=== PATIENT | female | born 1980 | race Hispanic/Latino ===

== ENCOUNTER 2016-06-04 09:03 | Outpatient (RCR) | payer OTHER | END 2016-06-22 | disposition home or self-care (01) | LOC: ONC 09:03 | PROVIDERS: ATTEND Radiology Radiation Oncology | DX: E05.00 Thyrotoxicosis with diffuse goiter without thyrotoxic crisis or storm (principal) | CPT/HCPCS: 84703; 99214 ==

== ENCOUNTER → 2016-06-04 | Outpatient (CLI) | payer OTHER | LOC: CARD 09:36 | PROVIDERS: ATTEND Radiology Radiation Oncology | DX: E05.00 Thyrotoxicosis with diffuse goiter without thyrotoxic crisis or storm (principal) | CPT/HCPCS: 79005 ==

== ENCOUNTER 2016-11-30 09:47 | Outpatient (CLI) | payer OTHER ==
[~2016-11-30] VITALS: Ht 152.4 cm; Wt 83.9 kg
[2016-11-30 09:54] VITALS: BP 112/77
[2016-11-30 10:26] LABS: BASOPHILS % (AUTO) 1 % (0-10); EOSINOPHILS # (AUTO) 0.3 10^3/uL (0.0-0.3); EOSINOPHILS % (AUTO) 4 % (0-10); LYMPHOCYTES # (AUTO) 2.2 X 10^3 (1.0-4.0); LYMPHOCYTES % (AUTO) 30 % (12-44); MEAN CORPUSCULAR HEMOGLOBIN 32 PG (25-34); MEAN CORPUSCULAR HGB CONC 35 G/DL (32-36); MEAN CORPUSCULAR VOLUME 92 FL (80-99); MEAN PLATELET VOLUME 9.9 FL (7.4-10.4); MONOCYTES # (AUTO) 0.3 X 10^3 (0.0-1.0); MONOCYTES % (AUTO) 4 % (0-12); NEUTROPHILS # (AUTO) 4.5 X 10^3 (1.8-7.8); NEUTROPHILS % (AUTO) 61 % (42-75); PLATELET COUNT 341 10^3/uL (130-400); RED BLOOD COUNT 4.44 10^6/uL (4.35-5.85); RED CELL DISTRIBUTION WIDTH 12.3 % (10.0-14.5); WHITE BLOOD COUNT 7.3 10^3/uL (4.3-11.0)
[2016-11-30] MEDS ORDERED: LEVO100T7 PO (10:27)
[2016-11-30 10:43] LABS: ANION GAP 9 MMOL/L (5-14); BLOOD UREA NITROGEN 11 MG/DL (7-18); BUN/CREATININE RATIO 13; CALCIUM 8.8 MG/DL (8.5-10.1); CARBON DIOXIDE 23 MMOL/L (21-32); CHLORIDE 105 MMOL/L (98-107); CREATININE SERUM 0.85 MG/DL (0.60-1.30); GFR ESTIMATED > 60; GLUCOSE 123 MG/DL (70-105); POTASSIUM 3.7 MMOL/L (3.6-5.0); SODIUM 137 MMOL/L (135-145)
== END 2016-11-30 10:20 | disposition home or self-care (01) ==
LOC: PREOP 09:47
PROVIDERS: ATTEND Surgery
DX: Z01.812 Encounter for preprocedural laboratory examination (principal); Z11.2 Encounter for screening for other bacterial diseases; K80.20 Calculus of gallbladder without cholecystitis without obstruction
CPT/HCPCS: 36415; 80048; 84703; 85025; 87081

== ENCOUNTER → 2016-12-01 | Outpatient (CLI) | payer OTHER ==
[~2016-12-01] MED LIST: DOCU-143 PO; HYDR-3812 PO; LEVO100T7 PO
--- NOTE | 2016-12-01 10:29 | Diagnostic Imaging Report ---
PROCEDURE: US Gallbladder. TECHNIQUE: Multiple real-time grayscale images were obtained over the right upper quadrant in various projections. INDICATION: Abdominal pain. FINDINGS: The pancreas is largely obscured by bowel gas. The liver demonstrates homogeneous parenchyma with no focal lesion. Hepatopetal flow in the portal vein is seen. The CBD is 4 mm in caliber. The gallbladder demonstrates multiple stones without wall thickening or pericholecystic fluid. Sonographic Joseph sign reportedly negative. The right kidney is 10.6 cm in length with no hydronephrosis or focal lesion. There is no fluid collection in the upper right abdomen. IMPRESSION: Cholelithiasis. Dictated by: Dictated on workstation # [id number]
== END ==
LOC: RAD 07:25
PROVIDERS: ATTEND Surgery
DX: K80.20 Calculus of gallbladder without cholecystitis without obstruction (principal)
CPT/HCPCS: 76705

== ENCOUNTER 2016-12-02 09:30 | Day surgery (SDC) | payer OTHER ==
[~2016-12-02] VITALS: Ht 152.4 cm; Wt 83.9 kg
[~2016-12-02 09:30] MED LIST changes: -DOCU-143 PO; -HYDR-3812 PO
[2016-12-02] MEDS: LACTATED RINGERS 1,000 ML IV PRN ×2 (09:45→13:01)
--- OUTSIDE RECORDS SUMMARY | 2016-12-02 10:11 | XMS REPORT ---
Author Author RAJESH MARQUEZ Organization [facility] [place] Address [address] [place] [address] Care Team Providers Care Manager Business Management Name Role Phone RAJESH MARQUEZ Unavailable PROBLEMS Type Condition ICD9-CM Code RHV19-OA Code Onset Dates Condition Status SNOMED Code Problem Encounter to establish care Z76.89 Active 259363026 Problem Right upper quadrant pain R10.11 Active 222906272 Problem Hyperthyroidism E05.90 Active 08792248 Assessment Hyperthyroidism E05.90 Jan, Active 65376332 ALLERGIES No Known Allergies SOCIAL HISTORY No smoking Hx information available PLAN OF CARE VITAL SIGNS MEDICATIONS No Known Medications RESULTS Name Result Date Reference Range T4 FREE 2016-02-13 T4,Free(Direct) 1.96 0.82-1.77 T3 TOTAL 2016-02-13 Triiodothyronine (T3) 263 71-180 PROCEDURES Procedure Date Ordered Related Diagnosis Body Site ASSAY, TRIIODOTHYRONINE (T3) Feb 13, 2016 ASSAY OF FREE THYROXINE Feb 13, 2016 VENIPUNCT, ROUTINE* Feb 13, 2016 IMMUNIZATIONS No Known Immunizations
--- OUTSIDE RECORDS SUMMARY | 2016-12-02 10:11 | XMS REPORT | Continuity of Care Document ---
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 THYROTOXIC 11/04/2015 RAJESH MARQUEZP Ot K80.20 CALCULUS OF GALLBLADDER W/O CHOLECYSTITI 11/04/2015 RAJESH MARQUEZ DINING ROOM HELPER Ot E05.90 THYROTOXICOSIS, 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 THYROTOXIC 11/07/2015 DUKE MARX, SHYAM Shipman Ot 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 11/07/2015 DUKE MARX, SHYAM Shipman Ot 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 12/23/2015 RAJESH MARQUEZP Ot K80.20 CALCULUS OF GALLBLADDER W/O CHOLECYSTITI 12/23/2015 RAJESH MARQUEZP Ot E05.90 THYROTOXICOSIS, 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 THYROTOXIC 12/23/2015 DUKE MARX, SHYAM Shipman Ot 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 12/23/2015 RAJESH MARQUEZ DINING ROOM HELPER Ot K80.20 CALCULUS OF GALLBLADDER W/O CHOLECYSTITI 12/23/2015 RAJESH MARQUEZP Ot E05.90 THYROTOXICOSIS, 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 THYROTOXIC 12/23/2015 DUKE MARX, SHYAM Shipman Ot 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 12/23/2015 RAJESH MARQUEZ DINING ROOM HELPER Ot E05.90 THYROTOXICOSIS, 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 THYROTOXIC 12/23/2015 RAJESH MARQUEZ DINING ROOM HELPER Ot K80.20 CALCULUS OF GALLBLADDER W/O CHOLECYSTITI 12/24/2015 RAJESH MARQUEZ DINING ROOM HELPER Ot K80.20 CALCULUS OF GALLBLADDER W/O CHOLECYSTITI 12/24/2015 DUKE MARX, SHYAM Shipman Ot 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 01/28/2016 RAJESH MARQUEZ DINING ROOM HELPER Ot K80.20 CALCULUS OF GALLBLADDER W/O CHOLECYSTITI 01/28/2016 RAJESH MARQUEZ DINING ROOM HELPER Ot E05.90 THYROTOXICOSIS, 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 THYROTOXIC 01/28/2016 DUKE MARX, SHYAM Shipman Ot 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 01/28/2016 DUKE MARX, SHYAM Shipman Ot 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 01/28/2016 RAJESH MARQUEZ DINING ROOM HELPER Ot E05.90 THYROTOXICOSIS, 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 THYROTOXIC 01/28/2016 RAJESH MARQUEZ DINING ROOM HELPER Ot K80.20 CALCULUS OF GALLBLADDER W/O CHOLECYSTITI 03/10/2016 RAJESH MARQUEZ DINING ROOM HELPER Ot K80.20 CALCULUS OF GALLBLADDER W/O CHOLECYSTITI 03/10/2016 RAJESH MARQUEZ DINING ROOM HELPER Ot E05.90 THYROTOXICOSIS, 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 THYROTOXIC 03/10/2016 DUKE MARX, SHYAM Shipman Ot 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 03/24/2016 RAJESH MARQUEZ DINING ROOM HELPER Ot K80.20 CALCULUS OF GALLBLADDER W/O CHOLECYSTITI 03/24/2016 RAJESH MARQUEZ DINING ROOM HELPER Ot E05.90 THYROTOXICOSIS, 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 THYROTOXIC 03/24/2016 DUKE MARX, SHYAM Shipman Ot 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 06/04/2016 RAJESH MARQUEZ DINING ROOM HELPER Ot K80.20 CALCULUS OF GALLBLADDER W/O CHOLECYSTITI 06/04/2016 RAJESH MARQUEZ DINING ROOM HELPER Ot E05.90 THYROTOXICOSIS, 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 THYROTOXIC 06/04/2016 DUKE MARX, SHYAM Shipman Ot 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 06/04/2016 NORA YORK MD Ot 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 06/04/2016 NORA YORK MD E Ot 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 06/04/2016 NORA YORK MD Ot 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 06/07/2016 NORA YORK MD Ot 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 06/09/2016 NORA YORK MD Ot 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 06/22/2016 NORA YORK MD Ot 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 06/23/2016 NORA YORK MD Ot 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 06/24/2016 NORA YORK MD Ot 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 07/16/2016 NORA YORK MD Ot 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 Procedures Results Test Result Range Serum or plasma choriogonadotropin ( test) detection - 04/09/16 09:33 Serum or plasma choriogonadotropin ( test) detection NEGATIVE NEGATIVE Serum or plasma choriogonadotropin ( test) detection - 06/04/16 09:24 Serum or plasma choriogonadotropin ( test) detection NEGATIVE NEGATIVE Urine beta human chorionic gonadotropin (hCG) measurement - 11/30/16 10:10 Urine beta human chorionic gonadotropin (hCG) measurement NEGATIVE NEGATIVE Complete blood count (CBC) with automated white blood cell (WBC) differential - 11/30/16 10:10 Blood leukocytes automated count (number/volume) 7.3 10*3/ uL 4.3-11.0 Blood erythrocytes automated count (number/volume) 4.44 10*6 /uL 4.35-5.85 Venous blood hemoglobin measurement (mass/volume) 14.3 g/dL 11.5-16.0 Blood hematocrit (volume fraction) 41 % 35-52 Automated erythrocyte mean corpuscular volume 92 [foz_us] 80-99 Automated erythrocyte mean corpuscular hemoglobin (mass per erythrocyte) 32 pg 25-34 Automated erythrocyte mean corpuscular hemoglobin concentration measurement ( mass/volume) 35 g/dL 32-36 Automated erythrocyte distribution width ratio 12.3 % 10.0-14.5 Automated blood platelet count (count/volume) 341 10*3/uL 130-400 Automated blood platelet mean volume measurement 9.9 [foz_us ] 7.4-10.4 Automated blood neutrophils/100 leukocytes 61 % 42-75 Automated blood lymphocytes/100 leukocytes 30 % 12-44 Blood monocytes/100 leukocytes 4 % 0-12 Automated blood eosinophils/100 leukocytes 4 % 0-10 Automated blood basophils/100 leukocytes 1 % 0-10 Blood neutrophils automated count (number/volume) 4.5 10*3 1.8-7.8 Blood lymphocytes automated count (number/volume) 2.2 10*3 1.0-4.0 Blood monocytes automated count (number/volume) 0.3 10*3 0.0-1.0 Automated eosinophil count 0.3 10*3/uL 0.0-0.3 Automated blood basophil count (count/volume) 0.0 10*3/uL 0.0-0.1 Whole blood basic metabolic panel - 11/30/16 10:10 Serum or plasma sodium measurement (moles/volume) 137 mmol/ L 135-145 Serum or plasma potassium measurement (moles/volume) 3.7 mmol/L 3.6-5.0 Serum or plasma chloride measurement (moles/volume) 105 mmol /L 98-107 Carbon dioxide 23 mmol/L 21-32 Serum or plasma anion gap determination (moles/volume) 9 mmol/L 5-14 Serum or plasma urea nitrogen measurement (mass/volume) 11 mg/dL 7-18 Serum or plasma creatinine measurement (mass/volume) 0.85 mg /dL 0.60-1.30 Serum or plasma urea nitrogen/creatinine mass ratio 13 NRG Serum or plasma creatinine measurement with calculation of estimated glomerular filtration rate > NRG Serum or plasma glucose measurement (mass/volume) 123 mg/dL 70-105 Serum or plasma calcium measurement (mass/volume) 8.8 mg/dL 8.5-10.1 Methicillin resistant Staphylococcus aureus (MRSA) screening culture - 10:10 Methicillin resistant Staphylococcus aureus (MRSA) screening culture NEG NRG Encounters ACCT No. Visit Date/Time Discharge Status Pt. Type Provider Facility Loc./Unit Complaint [id number] 06/04/2016 09:03:00 2016 00:01:00 DIS Outpatient NORA YORK MD [facility] ONC [id number] 11/30/2016 10:27:00 Document Registration [id number] 06/23/2016 00:10:00 PEN Preadmit NORA YORK MD [facility] ONC [id number] 06/04/2016 09:36:00 ACT Outpatient NORA YORK MD [facility] CARD THYROID CA [id number] 11/04/2015 13:48:00 ACT Outpatient DUKE MARX, SHYAM Shipman [facility] RAD GRAVES DISEASE [id number] 10/21/2015 11:08:00 ACT Outpatient RAJESH MARQUEZP [facility] CARD HYPERTHYROIDISM [id number] 10/14/2015 10:00:00 ACT Outpatient RAJESH MARQUEZ DINING ROOM HELPER [facility] RAD RUQ PAIN
--- OUTSIDE RECORDS SUMMARY | 2016-12-02 10:11 | XMS REPORT ---
Author RAJESH Schroeder [facility] e[employer] Address Unknown Phone Unavailable Care Team Providers Care Application Specialist Name Role Phone RAJESH MARQUEZ CP Unavailable Allergies, Adverse Reactions, Alerts Substance Reaction Event Type N.K.D.A. Info Not Available Non Drug Allergy Problems Problem Type Condition Code Onset Dates Condition Status Problem Gall stones K80.20 Active Problem Encounter to establish care Z76.89 Active Problem Graves disease E05.00 Active Assessment Graves disease E05.00 Active Assessment Gall stones K80.20 Active Problem Right upper quadrant pain R10.11 Active Problem Hyperthyroidism E05.90 Active Medications Medication Code System Code Instructions Start Date End Date Status Dosage Propranolol HCl [facility] [address]-84 10 MG Orally Three times a day 1 tablet Methimazole [facility] [address]-66 10 MG Orally Three times a day 1 tablet with food Procedures Procedure Coding System Code Date Office Visit, Est Pt., Level 4 CPT-4 98170 Mar 10, 2016 Vital Signs Date/Time: Mar 10, 2016 Cardiac Monitoring Heart Rate 76 bpm Weight 171.5 lbs Height 63 in BMI 30.38 Index Blood Pressure Diastolic 76 mmHg Blood Pressure Systolic 120 mmHg Results No Known Results Summary Purpose eClinicalWorks Submission
--- OUTSIDE RECORDS SUMMARY | 2016-12-02 10:11 | XMS REPORT ---
Author Author RAJESH MARQUEZ Organization [facility] Address [address] [place] [address] Care Team Providers Care Bean Roaster Name Role Phone RAJESH MARQUEZ Unavailable PROBLEMS Type Condition ICD9-CM Code JMN25-GN Code Onset Dates Condition Status SNOMED Code Problem Encounter to establish care Z76.89 Active 833406238 Problem Right upper quadrant pain R10.11 Active 881676780 Problem Hyperthyroidism E05.90 Active 56958313 Assessment Hyperthyroidism E05.90 Jan, Active 98890595 ALLERGIES No Known Allergies SOCIAL HISTORY No smoking Hx information available PLAN OF CARE Activity Details Pending Test T3 FREE Pending Test T4 FREE ,Reason: VITAL SIGNS MEDICATIONS No Known Medications RESULTS No Results PROCEDURES Procedure Date Ordered Related Diagnosis Body Site FREE ASSAY (FT-3) Feb 12, 2016 ASSAY OF FREE THYROXINE Feb 12, 2016 IMMUNIZATIONS No Known Immunizations
[2016-12-02 10:28] VITALS: BP 126/85
[2016-12-02] MEDS ORDERED: ceFAZolin 2 GM/NS 50 ML IV ONE (10:30)
[2016-12-02] MEDS ORDERED: CATHETER FLUSH 10 ML SYR IV PRN (10:30)
[2016-12-02] MEDS ORDERED: BUPIVACAINE 0.5% 30 ML (SENSORCAINE) VIAL ONE (10:39)
[2016-12-02] MEDS ORDERED: LIDOCAINE 1% INJ 20 ML (XYLOCAINE) VIAL ONE (10:39)
--- NOTE | 2016-12-02 11:10 | Progress Note-Pre Operative ---
Pre-Operative Progress Note H&P Reviewed The H&P was reviewed, patient examined and no changes noted. Date Seen by Provider: Dec 02, 2016 Time Seen by Provider: 11:10 Date H&P Reviewed: Dec 02, 2016 Time H&P Reviewed: 11:10 Pre-Operative Diagnosis: symptomatic cholelithiasis SONIA GARCIA DO Dec 02, 2016 11:10
[2016-12-02] MEDS ORDERED: MIDAZOLAM 2 MG/2 ML (VERSED) VIAL ONE (11:13)
[2016-12-02] MEDS ORDERED: fentaNYL INJECTION 100 MCG/2 ML AMP ONE ×2 (11:13→12:50)
[2016-12-02] MEDS ORDERED: LIDOCAINE 2% 20 ML (XYLOCAINE) VIAL ONE (11:14)
[2016-12-02] MEDS ORDERED: LACTATED RINGERS 1,000 ML IV ONE ×2 (11:14→12:43)
[2016-12-02] MEDS ORDERED: ROCURONIUM 50 MG/5 ML (ZEMURON) VIAL IV ONE (11:14)
[2016-12-02] MEDS ORDERED: DEXAMETHASONE PF 10 MG/ML (DECADRON) VIAL ONE (11:14)
[2016-12-02] MEDS ORDERED: SEVOFLURANE (ULTANE) 15 ML INHAL SOLN ONE ×5 (11:14→12:42)
[2016-12-02] MEDS ORDERED: proPOfol 200 MG/20 ML (DIPRIVAN) VIAL IV ONE (11:14)
[2016-12-02] MEDS ORDERED: ONDANSETRON 4 MG/2 ML (SDV) Z0FRAN ONE (11:14)
[2016-12-02] MEDS ORDERED: NEOSTIGMINE (BLOXIVERZ ) 1 MG/1ML 10 ML VIAL ONE (12:33)
[2016-12-02] MEDS ORDERED: GLYCOPYRROLATE 0.2 MG/ML (ROBINUL) 2 ML VIAL ONE (12:33)
--- NOTE | 2016-12-02 12:45 | Progress Note-Post Operative ---
Post-Operative Progess Note Surgeon (s)/Lasting Room Supervisor (s) Surgeon SONIA GARCIA DO Lasting Room Supervisor: Dr. Paul Pre-Operative Diagnosis symptomatic cholelithiasis Post-Operative Diagnosis same Procedure & Operative Findings Date of Procedure 12/02/16 Procedure Performed/Findings lap sebastien c ioc Anesthesia Type general Estimated Blood Loss Estimated blood loss (mL): minimal Specimens/Packing Specimens Removed gallbladder SONIA GARCIA DO Dec 02, 2016 12:45 pm
[2016-12-02] MEDS ORDERED: HYDR-3812 PO (13:14)
[2016-12-02] MEDS ORDERED: DOCU-143 PO (13:14)
[2016-12-02] MEDS ORDERED: ONDANSETRON 4 MG/2 ML (SDV) Z0FRAN IVP PRN (13:15)
[2016-12-02] MEDS ORDERED: MEPERIDINE (DEMEROL) INJ 50 MG/ML IVP PRN (13:15)
--- NOTE | 2016-12-02 13:15 | Discharge Inst-Simple/Standard ---
Discharge Inst-Standard Discharge Medications New, Converted or Re-Newed RX: RX on Chart Patient Instructions/Follow Up Plan of Care/Instructions/FU: Follow up with Dr. Briscoe in 2 weeks Take medication as tolerated. Activity as Tolerated: No Discharge Diet: No Restrictions Other Inst to Patient Follow up Appt: Make appointment for 2 weeks. Instructions: No lifting greater than 10 pounds. No strenuous activity. May shower in 24 hours, no tub bath or soaking. Use incentive spirometer at home as directed. No Smoking Skin/Wound Care: May remove bandages. You need to leave the white strips over incision on they will fall off on their own. Symptoms to Report: Appetite Changes, Extremity Discoloration, Numbness/Tingling, Swelling Increased , Bleeding Excessive, Eyesight Changes, Pain Increased, Urine Color Change, Constipation(Persistent), Fever over 101 degree F, Pain/Pressure in chest, Urinating Difficulty, Cough Up/Vomit Blood, Heart Beat Irreg/Pounding, Pain/ Pressure in jaw, Vaginal Bleeding Increase, Cramps in feet or legs, Lightheadedness, Pain/Pressure in shoulder, Diarrhea(Persistent), Memory Changes Suddenly, Questions/Concerns, Weight gain consecutive days, Dizziness/ Fainting, Nausea/Vomiting, Shortness of Breath, Weight gain over 2 pounds. If eyes or skin turn yellow notify physician. If questions or concerns contact your physician Or seek help at emergency department. SERA PLATA APRN Dec 02, 2016 1:15 pm
[2016-12-02] MEDS ORDERED: morphine INJ 10 MG/ML 1ML (SYR OR VIAL) ONE (13:30)
[2016-12-02] MEDS: morphine INJ 10 MG/ML 1ML (SYR OR VIAL) IVP PRN ×2 (13:32→13:38)
[2016-12-02 14:10] VITALS: BP 126/85
[2016-12-02 14:40] VITALS: BP 124/84
--- NOTE | 2016-12-02 14:44 | Diagnostic Imaging Report ---
EXAM: Intraoperative cholangiogram. INDICATION: Abdominal pain. 3 cc of Omnipaque, 313 seconds of fluoroscopy time utilized. FINDINGS: There is opacification of the CBD which is normal in caliber without filling defects to suggest a stone. There is also passage of contrast documented into the duodenum. IMPRESSION: No CBD stone or evidence of obstruction. Dictated by: Dictated on workstation # [id number]
[2016-12-02] MEDS ORDERED: HYDROcodone/APAP 5 MG/325 MG (LORTAB) TAB ONE (14:53)
[2016-12-02] MEDS ORDERED: HYDROcodone/APAP 5 MG/325 MG (LORTAB) TAB PO ONE (15:00)
[2016-12-02 15:10] VITALS: BP 117/80
--- NOTE | 2016-12-06 00:11 | OPERATIVE REPORT ---
PROCEDURE PHYSICIAN: SONIA GARCIA DATE OF PROCEDURE: 12/02/2016 PREOPERATIVE DIAGNOSIS: Symptomatic cholelithiasis. POSTOPERATIVE DIAGNOSIS: Symptomatic cholelithiasis. PROCEDURE: Laparoscopic cholecystectomy with intraoperative cholangiogram. SURGEON: Luis Felipe. RN CONCURRENT REVIEW: Dr. Paul, assist in retraction, dissection, and closure. ANESTHESIA: General. ESTIMATED BLOOD LOSS: Minimal. COMPLICATIONS: None. INDICATIONS: The patient is a 36 year-old female who has been having right upper quadrant abdominal pain ultrasound demonstrating cholelithiasis. She understands her symptoms are consistent with symptomatic cholelithiasis. She understands the risks and benefits of the procedure and wished to proceed with the procedure. Consent signed on the chart. PROCEDURE: The patient was taken to the operating suite. She was prepped and draped in sterile fashion. A surgical pause was performed. A 12 mm incision made just above the umbilicus and cautery dissection down to the fascia where it was then scored, grasped and elevated. The abdomen was then entered. A 0 Vicryl suture was placed in a [id number] fashion for closure at the end on the fascia. The balloon trocar was inserted, the balloon inflated and pneumoperitoneum was achieved. Under direct visual visualization of the laparoscope, a 5 mm trocar was placed in the subxiphoid region and two 5-mm trocars were placed in the right upper quadrant. The gallbladder was grasped, elevated. Some small adhesions were present on it. These were then taken down bluntly. The cystic duct and cystic artery were then dissected out. Clips were placed on proximal and distal portion of the cystic artery and then clips were placed on the distal portion of the cystic duct. The duct was then partially transected and an arrow catheter was inserted and cholangiogram was performed. Contrast made its way into the duodenum. There were no filling defects. The catheter was removed. Clips were placed on proximal portion of the cystic duct it was completely transected. Hook cautery was used to dissect the gallbladder from the gallbladder fossa achieving hemostasis. The abdomen was then irrigated with copious amounts of irrigation. Hemostasis was achieved and the liver bed was reinspected. The abdomen was then desufflated. The trocars were removed. The 12 mm fascial defect was then closed with the previously placed 0 Vicryl. The skin was then closed using 4-0 Vicryl in a subcuticular fashion. Sterile bandage was applied after Mastisol and Steri-Strips were applied. The patient tolerated the procedure well without any complications. She was taken to the recovery room in stable condition. Job ID: [id number] Dictated Date: 12/02/2016 12:48:24 Yardage Control Clerk Date: 12/06/2016 00:02:40 / [email or web address]
== END 2016-12-02 15:31 | disposition home or self-care (01) ==
LOC: SDC 09:30
PROVIDERS: ATTEND Surgery
DX: K80.10 Calculus of gallbladder with chronic cholecystitis without obstruction (principal); E05.00 Thyrotoxicosis with diffuse goiter without thyrotoxic crisis or storm; Z79.899 Other long term (current) drug therapy
CPT/HCPCS: 88304; 94664